=== PATIENT | female | born 1970 | race African-American/Black ===

== ENCOUNTER 2018-05-20 04:57 | Emergency (ER) | payer OTHER ==
[~2018-05-20] VITALS: Ht 160 cm; Wt 65.8 kg
[2018-05-20 05:20] VITALS: BP_SYST 153
[2018-05-20] MEDS ORDERED: DIPHENHYDRAMINE INJ 50 MG/ML VIAL IM ONE (05:30)
[2018-05-20] MEDS ORDERED: PROCHLORPERAZINE EDISYLATE 10 MG/2 ML VIAL IM ONE (05:30)
[2018-05-20] MEDS ORDERED: fentaNYL CITRATE/PF 100 MCG/2 ML AMP IM ONE (06:30)
[2018-05-20 07:19] VITALS: BP_SYST 153
== END 2018-05-20 07:19 | disposition home or self-care (01) ==
LOC: SED 04:57
DX: R51 Headache (principal); Z90.89 Acquired absence of other organs; Z90.710 Acquired absence of both cervix and uterus; Z86.718 Personal history of other venous thrombosis and embolism; Z88.6 Allergy status to analgesic agent
CPT/HCPCS: 96372; 99283; J0780; J1200; J3010